=== PATIENT | female | born 1940 | race Caucasian/White ===

== ENCOUNTER 2020-06-10 06:26 | Day surgery (SDC) | payer MEDICARE ==
[2020-06-09 11:26] VITALS: BMI 31.1
[2020-06-10] MEDS ORDERED: Lidocaine 1% MPF 2 ML VIAL ONE (06:44)
[2020-06-10] MEDS ORDERED: PROPOFOL 20 ML ONE ×4 (09:03→10:09)
[2020-06-10] MEDS ORDERED: Lidocaine 1% PF 5 ML VIAL ONE (09:03)
[2020-06-10] MEDS ORDERED: Fentanyl 100 MCG/2 ML VIAL ONE (09:43)
== END 2020-06-10 11:18 | disposition home or self-care (01) ==
LOC: CSHSDC 06:26
PROVIDERS: ATTEND Internal Medicine Gastroenterology
DX: K92.1 Melena (principal); D12.5 Benign neoplasm of sigmoid colon; K64.9 Unspecified hemorrhoids; I50.9 Heart failure, unspecified; E11.9 Type 2 diabetes mellitus without complications; E78.5 Hyperlipidemia, unspecified; E03.9 Hypothyroidism, unspecified; J44.9 Chronic obstructive pulmonary disease, unspecified; F32.9 Major depressive disorder, single episode, unspecified
CPT/HCPCS: 36416; 88305; J2704; J3010

== ENCOUNTER 2021-06-16 06:07 | Day surgery (SDC) | payer MEDICARE ==
[2021-06-13 15:09] VITALS: BMI 31.9
[2021-06-16] MEDS ORDERED: Lidocaine 1% MPF 2 ML VIAL ONE (07:00)
[2021-06-16] MEDS ORDERED: PROPOFOL 60 ML ONE (07:07)
[2021-06-16] MEDS ORDERED: Lidocaine 1% PF 5 ML VIAL ONE (07:07)
[2021-06-16] MEDS ORDERED: PROPOFOL 20 ML ONE (08:12)
[2021-06-16] MEDS ORDERED: ePHEDrine Sulfate 50 MG/10 ML VIAL ONE (08:19)
== END 2021-06-16 09:15 | disposition home or self-care (01) ==
LOC: CSHSDC 06:07
PROVIDERS: ATTEND Internal Medicine Gastroenterology
PROC: 0DBL8ZZ Excision of Transverse Colon, Via Natural or Artificial Opening Endoscopic (ICD-10-PCS; principal; 2021-06-16)
DX: Z12.11 Encounter for screening for malignant neoplasm of colon (principal); D12.3 Benign neoplasm of transverse colon; K57.30 Diverticulosis of large intestine without perforation or abscess without bleeding; K64.9 Unspecified hemorrhoids; E11.9 Type 2 diabetes mellitus without complications; J44.9 Chronic obstructive pulmonary disease, unspecified; I10 Essential (primary) hypertension; I48.91 Unspecified atrial fibrillation; E78.5 Hyperlipidemia, unspecified; F32.A Depression, unspecified
CPT/HCPCS: 36416; 88305; J2704